=== PATIENT | male | born 1965 | race Caucasian/White ===

== ENCOUNTER → 2019-10-06 14:33 | Outpatient (BNVA) | payer SELFPAY | PROVIDERS: Family Provider Specialist; PCP Specialist; Visit Provider Specialist | DX: G40.309 Generalized idiopathic epilepsy and epileptic syndromes, not intractable, without status epilepticus (principal); F17.210 Nicotine dependence, cigarettes, uncomplicated | CPT/HCPCS: 99212 ==

== ENCOUNTER → 2020-10-04 14:26 | Outpatient (BNVA) | payer SELFPAY | PROVIDERS: Family Provider Specialist; PCP Specialist; Visit Provider Specialist | DX: G40.309 Generalized idiopathic epilepsy and epileptic syndromes, not intractable, without status epilepticus (principal); F17.210 Nicotine dependence, cigarettes, uncomplicated | CPT/HCPCS: 99212; 99213 ==